=== PATIENT | female | born 1980 | race African-American/Black ===

== ENCOUNTER 2021-01-27 09:34 | Outpatient (RCR) | payer OTHER, SELFPAY ==
--- NOTE | ~2021-01-27 | US_ITS ---
EXAMINATION: US OB follow up w BPP EXAM DATE: 01/27/2021 10:42 INDICATION: AMA - Growth, BPP, NICHELLE AMA. 3rd trimester. TECHNIQUE: Pelvic obstetrical transabdominal sonogram was performed by a technologist. There are mu ltiple grayscale and Doppler images available for interpretation. There are no earlier studies of th is gestation for comparison. FINDINGS: There is a single fetus identified in vertex presentation with a heart rate of 145 beats pe r minute. The placenta is located in the right anterior position. There is no sonographic evidence o f retroplacental hemorrhage identified. The amniotic fluid index is 16.1 centimeters, which is normal . BIOMETRIC DATA: Biparietal diameter (BPD): 9.0 cm --------------> 36 weeks 2 days. Head circumference (HC): 33.2 cm ---------------> 37 weeks 6 days. Abdominal circumference (AC): 32.6 cm ---------> 36 weeks 4 days. Femur length (FL): 7.2 cm ------------------------> 36 weeks 4 days. These measurements are concordant. HC/AC ratio is 1.02 (The 5th -- 95th percentile range is 0.92-1.05. Estimated weight is 3003 g +/- 450 g. This is the 51st percentile when the currently reported clinical gestation age 36 weeks 6 days, clinical estimated date of delivery (SHIVA-OPE) 02/18 is used. estimated gestational age based on measurements from this exam is also 36 weeks 6 days, with an estimated date of delivery (SHIVA-AUA) 02/18. BIOPHYSICAL PROFILE (performed by the technologist) breathing (30 sec sustained breathing in 30 minutes): 2 out of 2 movement (3 gross body movements in 30 minutes): 2 out of 2 tone (one episode of htmrpob-kvlisskud-heukmal limb movement): 2 out of 2 Amniotic fluid pocket (2 cm): 2 out of 2 Total score: 8 out of 8 IMPRESSION: 1. Single fetus with heart rate of 145 bpm, 51st percentile weight using gestational age 36 weeks 6 days. 2. Normal biophysical profile score of 8 out of 8. 3. Normal amniotic fluid index 16 cm. Reviewed, dictated and finalized at location B. IMPRESSION: 1. Single fetus with heart rate of 145 bpm, 51st percentile weight using gesta tional age 36 weeks 6 days. 2. Normal biophysical profile score of 8 out of 8. 3. Normal amniotic fluid index 16 cm.
[2021-01-27 10:25] VITALS: BP 128/76; PULSE 105
== END 2021-02-06 07:41 | disposition home or self-care (01) ==
LOC: ANHOBOP 09:34
PROVIDERS: Visit Provider Obstetrics & Gynecology
DX: O09.513 Supervision of elderly primigravida, third trimester (principal); Z3A.36 36 weeks gestation of pregnancy
CPT/HCPCS: 59025; 76816; 76819

== ENCOUNTER 2021-02-02 12:49 | Inpatient (IN) | payer OTHER, SELFPAY ==
[2021-02-02] VITALS (117 sets, daily range): BP systolic 93–133; BP diastolic 42–91; PULSE 80–125; RESP 18; TEMP 36.2–36.8; O2SAT 89–100; BMI 43.1
--- OUTSIDE RECORDS SUMMARY | 2021-02-02 12:56 | XMS_ITS ---
:1980 Author Care Team Providers Name Role Phone Julius Primary Care Provider Unavailable Allergies Code Code System Name Reaction Severity Status Onset NKDA ? Notes: allergic to seafood- Al l fish Medications Name Status Start Date Stop Date ? ? acetaminophen 300 mg-codeine 30 mg Completed ? 09/15/2020 tablet albuterol sulfate 2.5 mg/3 mL (0.083 %) Active ? Not available solution for nebulization albuterol sulfate HFA 90 mcg/actuation aerosol inhaler Active ? Not available INHALE 2 PUFFS BY MOUTH EVERY 4 HOURS NEEDED amoxicillin 500 mg capsule Completed ? 08/02 amoxicillin 875 mg-potassium Completed ? clavulanate 125 mg tablet ampicillin 500 mg capsule Completed ? 2012 aspirin 81 mg tablet,delayed release Active ? Not available azithromycin 250 mg tablet Completed ? 12/19 benzonatate 100 mg capsule Unknown ? Not a vailable cephalexin 250 mg capsule Unknown ? Not av ailable cephalexin 750 mg capsule Completed ? 2020 cetirizine 10 mg tablet Active ? Not avai lable TAKE 1 TABLET BY MOUTH ONCE DAILY chlorhexidine gluconate 0.12 % Active ? N ot available mouthwash ciprofloxacin 500 mg tablet Unknown ? Not available Clotrimazole 3 Day 2 % vaginal cream Completed ? 04/20/2013 Insert 1 applicatorful every day by vaginal route at bedtime fo r 7 days. COVID-19 test specimen collection Active ? Not available
--- OUTSIDE RECORDS SUMMARY | 2021-02-02 12:56 | XMS_ITS | Encounter Summary ---
:1980 Author Reason for Visit return OB visit Assessment and Plan 1. Routine care Discussion Note: None recorded.Patient educational handouts: No information available. Plan of Care Reminders Provider Appointments None ? ? recorded. Lab None ? ? recorded. Referral None ? ? recorded. Procedures None ? ? recorded. Surgeries None ? ? recorded. Imaging None ? ? recorded. Medications Name Start Date ? ? albuterol sulfate 2.5 mg/3 mL (0.083 %) solution for n ebulization ? Inhale 1 mL every 6 hours by nebulization route as ne eded. albuterol sulfate HFA 90 mcg/actuation aerosol inhaler ? INHALE 2 PUFFS BY MOUTH EVERY 4 HOURS NEEDED aspirin 81 mg tablet,delayed release ? Take 1 tablet every day by oral route. cetirizine 10 mg tablet ? TAKE 1 TABLET BY MOUTH ONCE DAILY chlorhexidine gluconate 0.12 % mouthwash ? COVID-19 test specimen collection ? TEST DIRECTED FeroSul 325 mg (65 mg iron) tablet ? TAKE 1 TABLET BY MOUTH TWICE DAILY 28 mg iron-800 mcg tablet ? Take 1 tablet every day by oral route. Gummy 400 mcg-35 mg-25 mg-5 mg chewable table t ? Take 1 tablet every day by oral route. Pulmicort Flexhaler 180 mcg/actuation breath activated ? Inhale 1 puff twice a day by inhalation route.
--- OUTSIDE RECORDS SUMMARY | 2021-02-02 12:57 | XMS_ITS | Encounter Summary ---
:1980 Author Reason for Visit return OB visit Assessment and Plan 1. Routine care ? [facility] ? HIV (1+2) Ab screen, serum ? hemoglobin + hematocrit, b lood 2. Advanced maternal age ? Adult Low Dose Aspirin 81 mg tablet,delayed release Discussion Note: None recorded.Patient educational handouts: No information available. Plan of Care Reminders Provider Appointments None recorded. ? ? Lab Glucose [place] [facility] Tolerance Test, 11/11/2020 [facility] (Lab) Gestational, 1-Hour ? HIV (1+2) Ab [facility] Regional Screen, Serum 11/11/2020 [facility] (Lab) ? Hemoglobin + [facility] Hematocrit, Blood 11/11/2020 [facility] (Lab) Referral None recorded. ? ? Procedures None recorded. ? ? Surgeries None recorded. ? ? Imaging None recorded. ? ? Medications Name Start Date ? ? albuterol sulfate 2.5 mg/3 mL (0.083 %) solution for n ebulization ? Inhale 1 mL every 6 hours by nebulization route as ne eded. albuterol
--- OUTSIDE RECORDS SUMMARY | 2021-02-02 12:57 | XMS_ITS | Encounter Summary ---
:1980 Author Reason for Visit return OB visit Assessment and Plan 1. Advanced maternal age 2. Asthma in ? Zithromax Z-Refugio 250 mg tab let ? Medrol (Refugio) 4 mg tablets in a dose pack Discussion Note ER if worsens. Patient educational handouts: No information available. Plan of [...]
--- OUTSIDE RECORDS SUMMARY | 2021-02-02 12:57 | XMS_ITS | Encounter Summary ---
:1980 Author Reason for Visit return OB visit Assessment and Plan 1. Advanced maternal age 2. Acute bronchitis ? Keflex 750 mg capsule Discussion Note: None recorded.Patient educational handouts: No [...]
--- OUTSIDE RECORDS SUMMARY | 2021-02-02 12:57 | XMS_ITS | Encounter Summary ---
:1980 Author Reason for Visit return OB visit Assessment and Plan 1. Advanced maternal age 2. Infection by Trichomonas ? CT + NG + TV, DNA, urine/s wab 3. Routine care ? HIV (1+2) Ab screen, serum ? glucose tolerance test, ge stational, 1-hour ? hemoglobin + hematocrit, b lood Discussion Note: None recorded.Patient educational handouts: No information available. Plan of Care Reminders Provider Appointments None recorded. ? ? Lab CT + NG + TV, Gat [facility] DNA, Urine/swab 01/02/2021 [facility] (Lab) ? HIV (1+2) Ab [address] [facility] Screen, Serum 01/02/2021 [facility] (Lab) ? Glucose [place] [facility] Tolerance Test, 01/02/2021 [facility] (Lab) Gestational, 1-Hour ? Hemoglobin + [address] [facility] Hematocrit, Blood 01/02/2021 [facility] (Lab) Referral None recorded. ? ? Procedures None recorded. ? ? Surgeries None recorded. ? ? Imaging None recorded. ? ? Medications Name Start Date ? ?
--- OUTSIDE RECORDS SUMMARY | 2021-02-02 12:58 | XMS_ITS ---
:1980 Author Care Team Providers Name Role Phone Chacon Primary Care Provider Unavailable Allergies Code Code System Name Reaction Severity Status Onset NKDA ? Notes: allergic to seafood- Al l fish Medications Name Status Start Date Stop Date ? ? acetaminophen 300 mg-codeine 30 mg Active ? Not available tablet amoxicillin 500 mg capsule Active ? Not a vailable amoxicillin 875 mg-potassium Active ? Not available clavulanate 125 mg tablet ampicillin 500 mg capsule Completed ? 2012 azithromycin 250 mg tablet Active ? Not a vailable benzonatate 100 mg capsule Unknown ? Not a vailable cephalexin 250 mg capsule Unknown ? Not av ailable cetirizine 10 mg tablet Active ? Not avai lable TK 1 T PO QD chlorhexidine gluconate 0.12 % Active ? N ot available mouthwash ciprofloxacin 500 mg tablet Unknown ? Not available Clotrimazole 3 Day 2 % vaginal cream Completed ? 04/20/2013 Insert 1 applicatorful every day by vaginal route at bedtime fo r 7 days. Cytotec 200 mcg tablet Active ? Not avail able Take 2 tablets by oral route at bedtime for 1 day. ergocalciferol (vitamin D2) 1,250 mcg Active ? Not available (50,000 unit) capsule ferrous sulfate 325 mg (65 mg iron) tablet Unknown ? Not available TK 1 T PO BID fluconazole 150 mg tablet Unknown ? Not av ailable Take 1 tablet every day by oral route for 1 day.
[2021-02-02 13:44] LABS: Basophils Percent Auto 0.2 % (0.2-1.2); Eosinophils Absolute Auto 0.1 K/mm3 (0-0.3); Eosinophils Percent Auto 1.1 % (0-4.4); Hemoglobin 11.8 g/dL (12.0-15.0); Immature Granulocyte Absolute 0.15 K/mm3 (0.00-0.031); Immature Granulocyte Percent A 1.2 % (0-0.5); Lymphocytes Absolute Auto 1.85 K/mm3 (0.9-3.2); Lymphocytes Percent Auto 15.3 % (18.3-44.2); Mean Corpuscular HGB Conc 32.8 g/dl (32-36); Mean Corpuscular Volume 94.5 fl (80-100); Mean Platelet Volume 10.1 fl (7.4-10.4); Monocytes Absolute Auto 1.3 K/mm3 (0.1-0.6); Neutrophils Absolute Auto 8.6 K/mm3 (1.3-6.7); Neutrophils Percent Auto 71.2 % (45.5-73.1); Platelet Count Result 240 k/mm3 (150-375); Red Blood Count 3.81 M/mm3 (4.2-5.4); Red Cell Distribution Width 14.6 % (11.5-14.5); White Blood Count 12.1 K/mm3 (4.5-10.0)
[2021-02-02] MEDS: AMPICILLIN 2 GM/NS 100 ML 2 GM/100 ML BAG IVPB (13:52)
[2021-02-02] MEDS: LACTATED RINGERS 1,000 ML 125 ML IV CONT ×2 (13:53→18:07)
[2021-02-02] MEDS: OXYTOCIN 30 UNITS/NS 500 ML 30 UNITS/500 ML BAG IV CONT (14:15)
--- NOTE | 2021-02-02 14:33 | LDADM ---
This patient, Sugar Agustin, was admitted to Labor/Delivery/Recovery 107 on 02/02/21 at 12:49. Plans for labor, pain management and were discussed with patient. Patient/family oriented to hospital policies and general routines including ID bracelet, bed and alarms, visiting hours, pain management, procedures, bathroom and other care routines, personal items, smoking policy, room service/diet and guest tray routines, security routines, and visiting hours. Patient/Family are encouraged to report perceived risks to care and to ask questions if they do not understand what they are told or what they should do. See OBIX for further documentation.
[2021-02-02 14:44] LABS: Glucose Point of Care 79 mg/dl (65-105)
[2021-02-02 14:44] LABS: Glucose Point of Care 29 mg/dl (65-105)
[2021-02-02 15:12] LABS: HIV 1/2 Ab P24 Ag Result Negative (Negative)
[2021-02-02] MEDS: fentaNYL CITRATE INJ (*CRX) 100 MCG/2 ML VIAL 50 MCG IV PUSH (17:11)
--- NOTE | 2021-02-02 17:16 | PM.IMHP ---
H&P: HPI History of Present Illness Date/Time: 02/02/21 16:48 Sugar is a 40yo @ 37.5wks (SHIVA 02/18/21) who presents for induction of labor. She has uncontrolled persistent asthma, unable to lay flat. No CP. She has been on allergy medicine, oral steroids, antibiotics, inhaled steroids and albuterol without resolution. She has had multiple COVID testing that were negative. She reports issues in prior pregnancies and that it always worsens the further along. She reports good movement. She has occasional contractions. No VB or LOF. Her is complicated by: - Persistent, uncontrolled asthma: on budesonide + albuterol - AMA; pt declined NIPT - Elevated glucola; 3hr was not completed (glucose of 79 on admission)-- normal growth/fluid - Rubella non-immune - GBS positive - Trichomonas infection s/p txt-- JAVON negative - Obesity; BMI 43 Chief Complaint: induction of labor Review of Systems Review of Systems: All systems reviewed & are unremarkable except as noted in HPI and below (HPI) [facility] Family History Family History Other No pertinent family history Social History Social History Smoking status: Never smoker Second hand tobacco smoke exposure: No Substance use: never Spiritual care concerns: No Meds Home Medications and Allergies Home Medications Medication Instructions Recorded Confirmed Type PNV cmb#95-ferrous fumarate-FA 1 tablet PO DAILY 01/30/21 01/30/21 History [] cetirizine [Zyrtec] 10 mg PO DAILY 01/30/21 01/30/21 History ferrous sulfate [Iron (ferrous 325 mg PO DAILY 01/30/21 01/30/21 History sulfate)] Allergies Allergy/AdvReac Type Severity Reaction Status Date / Time fish derived Allergy Anaphylaxis Verified 01/30/21 13:02 shellfish derived Allergy Anaphylaxis Verified 01/30/21 13:02 Vital Signs Vital Signs - 24 hr 02/02/21 13:37 02/02/21 13:42 02/02/21 13:45 Temperature 36.8 C Pulse Rate Respiratory Rate 18 Blood Pressure Pulse Oximetry 100 99 02/02/21 13:47 02/02/21 13:52 02/02/21 13:57 Temperature Pulse Rate Respiratory Rate Blood Pressure Pulse Oximetry 100 99 100 02/02/21 14:02 02/02/21 14:07 02/02/21 14:12 Temperature Pulse Rate Respiratory Rate Blood Pressure Pulse Oximetry 99 98 100 02/02/21 14:17 02/02/21 14:22 02/02/21 14:24 Temperature Pulse Rate 100 Respiratory Rate Blood Pressure 133/85 Pulse Oximetry 99 100 99 02/02/21 14:47 02/02/21 15:01 02/02/21 15:41 Temperature Pulse Rate 105 H 108 H Respiratory Rate Blood Pressure 102/50 L 107/68 Pulse Oximetry 99 02/02/21 15:42 02/02/21 15:46 02/02/21 15:51 Temperature Pulse Rate 105 H Respiratory Rate Blood Pressure 129/88 Pulse Oximetry 100 99 02/02/21 16:01 02/02/21 16:31 Temperature Pulse Rate 100 108 H Respiratory Rate Blood Pressure 107/81 104/57 L Pulse Oximetry Exam Const: General: cooperative Nutritional Appearance: obese Resp: Effort & Inspection: no audible wheezes, no nasal flaring, no respiratory distress and tachypneic Auscultation: clear to auscultation bilaterally Cardio: Rate: regular rate GI: Inspection: non-distended GI Palp: No abdominal tenderness and Yes Soft to palpation : Other: FHT's: 150's/ mod alicia/ + accels/ no decels - cat 1 TOCO: irregular ctx's Cervix: 3/50/-2 Membranes: AROM, clear @ 1715 Presentation: cephalic Pitocin: 8mU Skin: General skin exam: normal color Neuro: General: patient oriented x3 Extrem: General: normal to inspection Psych: Appearance: grossly normal Affect: normal affect Attitude: cooperative H&P: Results Labs Labs: Short CBC 02/02/21 Range/Units 13:38 WBC 12.1 H (4.5-10.0) K/mm3 Hgb 11.8 L (12.0-15.0) g/dL Hct 36.0 L (37.0-47.0) % Plt Count 240 (150-375) k
--- NOTE | 2021-02-02 17:37 | WPDANESEPPF ---
Anes - Initial Pre Proc Eval Date/Time: 02/02/21 17:37 Surgeon: Mariann Madrid MD Pre Op Diagnosis: iol Patient Data Age: 40 Gender: F Height: 1.63 m Weight: 114 kg Last Vital Signs Temp 36.8 C 02/02/21 13:45 Pulse 101 H 02/02/21 17:31 Resp 18 02/02/21 13:45 BP 111/66 02/02/21 17:31 Pulse Ox 99 02/02/21 15:51 Allergies Allergy/AdvReac Type Severity Reaction Status Date / Time fish derived Allergy Anaphylaxis Verified 01/30/21 13:02 shellfish derived Allergy Anaphylaxis Verified 01/30/21 13:02 Home Medications Medication Instructions Recorded Confirmed Type PNV cmb#95-ferrous fumarate-FA 1 tablet PO DAILY 01/30/21 01/30/21 History [] cetirizine [Zyrtec] 10 mg PO DAILY 01/30/21 01/30/21 History ferrous sulfate [Iron (ferrous 325 mg PO DAILY 01/30/21 01/30/21 History sulfate)] Laboratory Tests 02/02/21 02/02/21 02/02/21 13:38 13:38 13:38 WBC 12.1 K/mm3 H K/mm3 (4.5-10.0) RBC 3.81 M/mm3 L M/mm3 (4.2-5.4) Hgb 11.8 g/dL L g/dL (12.0-15.0) Hct 36.0 % L % (37.0-47.0) MCV 94.5 fl fl (80-100) MCH 31.0 pg pg (26-34) MCHC 32.8 g/dl g/dl (32-36) RDW 14.6 % H % (11.5-14.5) Plt Count 240 k/mm3 k/mm3 (150-375) MPV 10.1 fl fl (7.4-10.4) Immature Gran % (Auto) 1.2 % H % (0-0.5) Neut % (Auto) 71.2 % % (45.5-73.1) Lymph % (Auto) 15.3 % L % (18.3-44.2) [place] % (Auto) 11.0 % H % (2.6-8.5) Eos % (Auto) 1.1 % % (0-4.4) Baso % (Auto) 0.2 % % (0.2-1.2) Lymph # (Auto) 1.85 K/mm3 K/mm3 (0.9-3.2) [place] # (Auto) 1.3 K/mm3 H K/mm3 (0.1-0.6) Eos # (Auto) 0.1 K/mm3 K/mm3 (0-0.3) Baso # (Auto) 0.0 K/mm3 K/mm3 (0.0-0.1) Abs Immat Gran (auto) 0.15 K/mm3 H K/mm3 (0.00-0.031) Absolute Neuts (auto) 8.6 K/mm3 H K/mm3 (1.3-6.7) Absolute Nucleated RBC 0.0 K/mm3 K/mm3 (0.0-0.012) Nucleated RBC % 0.0 % % (0.0-0.2) POC Capillary Glucose RPR Pending HIV 1&2 Ab/P24 Ag 4thGn Blood Type O Positive Antibody Screen Negative 02/02/21 02/02/21 02/02/21 14:11 14:13 14:18 WBC RBC Hgb Hct MCV MCH MCHC RDW Plt Count MPV Immature Gran % (Auto) Neut % (Auto) Lymph % (Auto) [place] % (Auto) Eos % (Auto) Baso % (Auto) Lymph # (Auto) [place] # (Auto) Eos # (Auto) Baso # (Auto) Abs Immat Gran (auto) Absolute Neuts (auto) Absolute Nucleated RBC Nucleated RBC % POC Capillary Glucose 29 mg/dl L* mg/dl 79 mg/dl mg/dl (65-105) (65-105) RPR HIV 1&2 Ab/P24 Ag 4thGn Negative (Negative) Blood Type Antibody Screen Patient hx anesthesia problems: none Family hx anesthesia problems: none Results Review: All pre-operative results and documents have been reviewed as part of the pre-operative evaluation. [facility] Past Medical History Medical History (Updated 02/02/21 @ 17:38 by Kevon Joshua MD) Advanced maternal age (AMA) in Asthma affecting in third trimester Morbid obesity with BMI of 40.0-44.9, adult Family History Family History Other No pertinent family history Social History Social History Smoking status: Never smoker Second hand tobacco smoke exposure: No Substance use: never Spiritual care concerns: No Anes - Eval Final PreProcedure Day of Procedure 02/02/21 17:37
[2021-02-02] MEDS: AMPICILLIN 1 GM/NS 50 ML 1 GM/50 ML BAG IVPB ×2 (18:07→21:55)
[2021-02-02] MEDS: miSOPROStol 200 MCG TABLET 800 MCG RECTAL (23:50)
[2021-02-02] MEDS: OXYTOCIN 30 UNITS/NS 500 ML 30 UNITS/500 ML BAG 125 UNITS IV CONT (23:56)
[2021-02-03] VITALS (32 sets, daily range): BP systolic 105–131; BP diastolic 60–84; PULSE 79–120; RESP 16–18; TEMP 35.9–37.2; O2SAT 95–100
--- NOTE | 2021-02-03 00:14 | PM.OBPRVD ---
OB - Delivery Note Procedure Delivery date: 02/03/21 events: Labor Induction Intrapartal events: Precipitous Labor < 3 hours Induction method: per pitocin protocol Delivery augmentation: rupture of membranes Delivery monitor: external FHT and internal uterine Route of delivery: Laceration Description: Cervical Delivery repair: vicryl Specimen: Yes Quantitative Blood Loss (ml): 900 Anesthesia type: Epidural Disposition: floor Baby Date of : 02/03/21 Time of : 23:30 Weeks of gestation at delivery: 37 (.5) Infant gender: Male Weight (pounds): 7 Weight (ounces): 2 presentation: vertex position: Left Occiput Anterior Placenta delivery description: Expressed cord vessel description: 3 Vessels, Nuchal Cord and Loose score one minute: 8 score five minutes: 9 Narrative: Sugar rapidly progressed from 5 cm to completely dilated with strong desire to push. She pushed for approximately 4 contractions and delivered the head over intact perineum. Nuchal cord was noted but loose and delivered through. She easily delivered the infant's shoulders and body without complications. The infant was immediately placed skin to skin and had spontaneous cry. The umbilical cord was then clamped and cut. A segment of umbilical cord was collected for cord gases. The remaining cord blood was collected for typing. With Pitocin infusing, brisk bleeding was noted and the placenta delivered without complications. Bimanual massage was performed and good uterine tone was noted, however, bleeding continued. The patient was examined and a cervical laceration at 6:00 a.m. was noted with an arterial bleed. The cervix was repaired in a running, interlocking fashion using 2-0 Vicryl. Slight uterine atony was also noted and more clots were expressed from the uterus. Misoprostol 800 mcg was placed rectally. Minimal bleeding and good tone were then noted. Sponge, lap, instrument, and needle counts were correct at the end the procedure. Mom and baby were left bonding in the birthing suite in a stable condition. A CBC will be sent due to excessive bleeding from the laceration.
[2021-02-03 01:35] LABS: Hematocrit 31.8 % (37.0-47.0); Hemoglobin 10.5 g/dL (12.0-15.0); Mean Corpuscular Hemoglobin 31.6 pg (26-34); Mean Corpuscular Volume 95.8 fl (80-100); Mean Platelet Volume 10.1 fl (7.4-10.4); Platelet Count Result 200 k/mm3 (150-375); Red Blood Count 3.32 M/mm3 (4.2-5.4); Red Cell Distribution Width 14.4 % (11.5-14.5); White Blood Count 15.5 K/mm3 (4.5-10.0)
[2021-02-03] MEDS: IBUPROFEN 600 MG TABLET PO ×3 (02:17→16:18)
[2021-02-03] MEDS: BENZOCAINE 20% AER SPR (*SP) 56 GM CAN 1 SPRAY TOPICAL (02:18)
[2021-02-03] MEDS: WITCH HAZEL 40 PADS 1 PAD TOPICAL (02:18)
--- NOTE | 2021-02-03 02:44 | OBPPTRN ---
Patient transferred to post room #282 via wheelchair. Support person present. Oriented to unit, room, information board, rooming in, admission packet and security measures. Patient verbalizes understanding.
[2021-02-03] MEDS: HYDROcodone/acetaminophen (*CRX) 10-325 MG TABLET 1 TAB PO ×3 (03:13→12:56)
--- NOTE | 2021-02-03 08:37 | WPDANLDPN2 ---
Anes-Prog Note L&D Date/Time: 02/03/21 08:37 Comfortable throughout: labor and delivery Neuraxial method: epidural Epidural/Spinal procedure site: clean & non-tender Neuro status: Neuro function grossly intact. Cardiovascular status: normal Respiratory status: normal Airway patency: baseline Mental status: baseline Post-Op hydration status: normal Vital Signs: Last Vital Signs Temp 37.2 C 02/03/21 02:50 Pulse 96 02/03/21 02:50 Resp 16 02/03/21 02:50 BP 125/81 02/03/21 02:50 Pulse Ox 98 02/03/21 02:50 Pain score (VAS): 0/10 I/O: Intake & Output 02/02/21 02/03/21 02/03/21 23:59 07:59 15:59 Intake Total 1050 500 Output Total 900 Balance 1050 -400 Patient feedback: Patient satisfied with anesthetic care.
[2021-02-03] MEDS: MULTIVIT/MIN/PREN/FOL AC/IRON TABLET 1 TAB PO (09:04)
[2021-02-03] MEDS: DOCUSATE SODIUM 100 MG CAPSULE PO (09:04)
[2021-02-03] MEDS: FERROUS SULFATE 324 MG TABLET PO ×2 (09:04→16:18)
[2021-02-03] MEDS: LORATADINE 10 MG TABLET PO (09:04)
[2021-02-03 10:16] LABS: Hematocrit 30.7 % (37.0-47.0); Hemoglobin 10.1 g/dL (12.0-15.0)
--- NOTE | 2021-02-03 10:20 | PM.OBPNVD ---
OB - PN: Subj Subjective Date/time seen: 02/03/21 10:20 PPD#1 Sugar reports doing well today. She reports her pain is controlled with PO pain meds. Her bleeding is normal. She has ambulated, voided, passed gas and tolerated regular diet. She is bottle feeding. She would like her son circumcised today. She would like to go home tomorrow. She reports her breathing is much better today; less coughing. She denies N/V, fever, chills, CP, SOB, MARIN, vision changes, N/V, dizziness or palpations. OB - PN: Obj Data Labs CBC & Chem 7: 02/03/21 01:24 Labs: Laboratory Results - last 24 hr 02/02/21 02/02/21 02/02/21 13:38 13:38 14:11 WBC 12.1 H RBC 3.81 L Hgb 11.8 L Hct 36.0 L MCV 94.5 MCH 31.0 MCHC 32.8 RDW 14.6 H Plt Count 240 MPV 10.1 Immature Gran % (Auto) 1.2 H Neut % (Auto) 71.2 Lymph % (Auto) 15.3 L [place] % (Auto) 11.0 H Eos % (Auto) 1.1 Baso % (Auto) 0.2 Lymph # (Auto) 1.85 [place] # (Auto) 1.3 H Eos # (Auto) 0.1 Baso # (Auto) 0.0 Abs Immat Gran (auto) 0.15 H Absolute Neuts (auto) 8.6 H Absolute Nucleated RBC 0.0 Nucleated RBC % 0.0 POC Capillary Glucose 29 L* HIV 1&2 Ab/P24 Ag 4thGn Blood Type O Positive Antibody Screen Negative 02/02/21 02/02/21 02/03/21 14:13 14:18 01:24 WBC 15.5 H RBC 3.32 L Hgb 10.5 L Hct 31.8 L MCV 95.8 MCH 31.6 MCHC 33.0 RDW 14.4 Plt Count 200 MPV 10.1 Immature Gran % (Auto) Neut % (Auto) Lymph % (Auto) [place] % (Auto) Eos % (Auto) Baso % (Auto) Lymph # (Auto) [place] # (Auto) Eos # (Auto) Baso # (Auto) Abs Immat Gran (auto) Absolute Neuts (auto) Absolute Nucleated RBC Nucleated RBC % POC Capillary Glucose 79 HIV 1&2 Ab/P24 Ag 4thGn Negative Blood Type Antibody Screen OB - PN A/P Assessment and Plan (1) Normal vaginal delivery: Code(s): O80 - Encounter for full-term uncomplicated delivery Status: Acute (2) Cervical laceration: Qualifiers: Encounter type: initial encounter Qualified Code(s): S37.63XA - Laceration of uterus, initial encounter Code(s): S37.63XA - Laceration of uterus, initial encounter Status: Acute Plan day: 1 Plan: routine care Comments: - plan to discharge home tomorrow morning if baby can be discharged - Pelvic rest, take meds as prescribed - f/u in 4wks - ER return precautions: fever, n/v/abd pain, bleeding, HTN Time Spent With Patient Time: Total time spent is greater than 50% in coordination of care (as documented) at patient's floor/unit and/or counseling patient: Review of Systems Review of Systems: All systems reviewed & are unremarkable except as noted in HPI and below (HPI) Exam Const: General: cooperative, comfortable and no acute distress Nutritional Appearance: obese Resp: Effort & Inspection: normal respiratory effort Auscultation: clear to auscultation bilaterally Cardio: Rate: regular rate GI: Inspection: normal to inspection and non-distended GI Palp: No abdominal tenderness and Yes Soft to palpation Auscultation: normal bowel sounds : Other: fundus firm Skin: General skin exam: normal color Neuro: General: patient oriented x3 Psych: Appearance: grossly normal Affect: normal affect Attitude: cooperative
[2021-02-03 11:03] LABS: Rapid Plasma Reagin Non-Reactive (NonReactive)
[2021-02-04] MEDS: IBUPROFEN 600 MG TABLET PO ×2 (04:24→11:15)
--- NOTE | 2021-02-04 07:00 | PC.NURSE ---
PT introductions made and plan of care discussed per post , pain management, daily care activities , bottle feeding, and pending discharge to home. PT verbalized understanding of such care. PT sole recipient of such instructions given one to one discussion, mom baby care guide and demonstrations. Mom shows no evidence of learning disability at this time. PT to receive such instructions per shift and discharge instructions.
[2021-02-04 11:00] VITALS: BP 111/80; PULSE 85; RESP 18; TEMP 36.8; O2SAT 100
[2021-02-04] MEDS: LORATADINE 10 MG TABLET PO (11:00)
[2021-02-04] MEDS: MULTIVIT/MIN/PREN/FOL AC/IRON TABLET 1 TAB PO (11:00)
[2021-02-04] MEDS: ACETAMINOPHEN 325 MG TABLET 650 MG PO (11:15)
--- NOTE | 2021-02-04 12:30 | PC.NURSE ---
PT received discharge instructions per protocol. Patient was given the opportunity to view the discharge video Mother & Baby Care, The First Two Weeks and to ask questions. Patient declined viewing the video and has been given the mother/baby guide for home reference.
[2021-02-04] MEDS: MEASLES,MUMPS,RUBELLA VACCINE 0.5 ML VIAL SUB-Q (13:04)
--- NOTE | 2021-02-04 13:10 | PC.NURSE ---
PT discharged to home ambulatory unaccompanied other than baby to waiting car. Follow up appts confirmed
--- NOTE | 2021-02-11 08:55 | PM.OBDSVD ---
DS: Admitting Diagnosis Discharge Date 02/04/21 Admitting Diagnosis induction of labor DS: Discharge Diagnosis Discharge Diagnosis (1) Normal vaginal delivery: Code(s): O80 - Encounter for full-term uncomplicated delivery Status: Acute (2) Cervical laceration: Qualifiers: Encounter type: initial encounter Qualified Code(s): S37.63XA - Laceration of uterus, initial encounter Code(s): S37.63XA - Laceration of uterus, initial encounter Status: Acute OB - DS: Summary OB Procedures : NST and Ultrasound OB Procedures Intrapartum: Spontaneous Vag Delivery OB Procedures: : None Peripartum Data Infant Delivery Method: Natural Vaginal Laceration Description: Cervical complications: none 1: Gender: Male Disposition of : home Status at Discharge Functional status at discharge: independent ambulation Overall status at discharge: patient is back to baseline Time Spent with Patient Time attestation: Total time spent providing and/or coordinating discharge services: Time spent: Less than 30 minutes Exam Const: General: cooperative, comfortable and no acute distress Nutritional Appearance: obese Resp: Effort & Inspection: normal respiratory effort Auscultation: clear to auscultation bilaterally Cardio: Rate: regular rate GI: Inspection: normal to inspection and non-distended GI Palp: No abdominal tenderness and Yes Soft to palpation Auscultation: normal bowel sounds : Other: fundus firm Skin: General skin exam: normal color Neuro: General: patient oriented x3 Extrem: General: normal to inspection Psych: Appearance: grossly normal Affect: normal affect Attitude: cooperative DS: Data Data Completed and Pending Completed studies during hospitalization: Pending at discharge 02/02/21 23:33 Surgical [PTH] Routine Discharge Plan Discharge Attending physician on discharge: Mariann Madrid Consulting providers: Kevon Joshua Discharging Clinician: Mariann Madrid Anticipated Discharge Date/Time: 02/04/21 08:00 Patient Disposition: Home, Self-Care Activity: pelvic rest Diet: regular Discharge Instructions: Education: Mom and Baby Guide Given to: Mother Follow-Up: Call your delivering provider's office for an appointment to be seen in: 4 Weeks Mom and baby should come to the [facility] for the follow-up appointment. Appointment Date/Time: February 07, 2021 at 11:00 am What to expect at your follow-up visit: Blood Pressure Check Call [phone] if you are unable to keep your appointment time. BREAST CARE: * Wear a snug supportive bra. * For engorgement discomfort: Bottle Feeding: * May apply ice packs PERINEAL CARE: * Until bleeding stops, use your radha bottle after urinating * Change your pad frequently throughout the day * You may take sitz baths several times a day (fill your bathtub with warm water and soak for 20 minutes.) Do NOT bathe in the water * No tub baths until seen by your physician - You may shower ACTIVITY: * Rest as much as possible. * Do not exercise or lift anything heavier than your baby (such as laundry or other children.) * Avoid stairs or driving as much as possible. * Do not put anything into the vagina. No douching, tampons, or sexual activity until seen by physician. NOTIFY PHYSICIAN IF YOU HAVE ANY QUESTIONS OR IF ANY OF THE FOLLOWING SYMPTOMS OCCUR: * If your perineum becomes red, swollen, or more painful than what you have experienced in the hospital. * If your vaginal bleeding becomes foul smelling. * If your vaginal bleeding becomes more heavy than a period or if your bleeding changes from pink to bright red. However, you may pass an occasional walnut-sized clot once or twice for the first week . * If you experience a sharp, shooting pain in you calves. * If you discover a hard, estuardo
== END 2021-02-04 13:10 | disposition home or self-care (01) | DRG 542 ==
LOC: ANHLDR 12:54 → ANHOB2 02-03 02:45
PROVIDERS: Admitting Provider Obstetrics & Gynecology; Visit Provider Obstetrics & Gynecology
DX: O99.824 Streptococcus B carrier state complicating childbirth (principal); O99.52 Diseases of the respiratory system complicating childbirth; J45.909 Unspecified asthma, uncomplicated; O99.214 Obesity complicating childbirth; E66.01 Morbid (severe) obesity due to excess calories; O62.3 Precipitate labor; O69.81X0 Labor and delivery complicated by cord around neck, without compression, not applicable or unspecified; O71.3 Obstetric laceration of cervix; Z3A.37 37 weeks gestation of pregnancy; Z37.0 Single live birth
CPT/HCPCS: 36415; 82948; 85014; 85018; 85025; 85027; 86592; 86703; 86850; 86900; 86901; 88307; 90710; A9270; G0432; J0290; J2590; J2795; J3010; J7120